=== PATIENT | female | born 1970 | race Hispanic/Latino ===

== ENCOUNTER 2021-12-21 14:23 | Observation (INO) | payer OTHER ==
[~2021-12-21] VITALS: Ht 170.2 cm; Wt 83.9 kg
[2021-12-21] VITALS (19 sets, daily range): BP systolic 113–127; BP diastolic 63–79
[2021-12-21 14:48] LABS: APPEARANCE,URINE Clear (CLEAR); BILIRUBIN,URINE Negative (NEGATIVE); COLOR,URINE Yellow (YELLOW); GLUCOSE, URINE (UA) Negative (NEGATIVE); KETONES,URINE Negative (NEGATIVE); LEUKOCYTE ESTERASE ,URINE Negative (NEGATIVE); NITRATE,URINE Negative (NEGATIVE); OCCULT BLOOD,URINE Negative (NEGATIVE); PH,URINE 5.5 (5.0-8.0); PROTEIN,URINE Negative (NEGATIVE); UROBILINOGEN,URINE 0.2 mg/dL (0.2-1.0)
[2021-12-21 14:48] LABS: BASOPHILS % (AUTO) 0.5 % (0.0-5.0); EOSINOPHILS % (AUTO) 2.1 % (0.0-8.0); HEMATOCRIT 41.5 % (36-48); LYMPHOCYTES % (AUTO) 21.7 % (21.0-51.0); MEAN CORPUSCULAR HEMOGLOBIN 25.4 pg (27.0-33.0); MEAN CORPUSCULAR VOLUME 79.2 fL (79-99); MONOCYTES % (AUTO) 6.7 % (3.0-13.0); NEUTROPHILS % (AUTO) 68.6 % (40.0-77.0); PLATELET COUNT (AUTO) 323 K/uL (130-400); RED BLOOD CELL COUNT(AUTO) 5.24 MIL/uL (4.00-5.50); RED CELL DISTRIBUTION WIDTH 14.4 % (11.0-15.5); WHITE BLOOD COUNT (AUTO) 15.4 K/uL (4.8-10.8)
[2021-12-21 15:05] LABS: CARBON DIOXIDE 29 mmol/L (21-32); CHLORIDE 104 mmol/L (101-111); CREATININE 0.7 mg/dL (0.5-1.5); GLOMERULAR FILTR. RATE CALC 94 mL/min (>60); GLUCOSE,RANDOM 105 mg/dL (70-105); POTASSIUM 3.9 mmol/L (3.5-5.1); SODIUM SERUM 141 mmol/L (136-145); UREA NITROGEN, BLOOD 12 mg/dL (7-18)
[2021-12-21 15:09] LABS: ALANINE AMINOTRANSFERASE 32 U/L (12-78); ALBUMIN 4.1 g/dL (3.5-5.0); ASPARTATE AMINOTRANSFERASE 21 U/L (10-37); BILIRUBIN,TOTAL 0.6 mg/dL (0.2-1.0); TOTAL PROTEIN, SERUM 8.3 g/dL (6.0-8.3)
[2021-12-21 15:22] LABS: LIPASE < 50 U/L (114-286)
[2021-12-21] MEDS ORDERED: MORPHINE 4 MG SYG IV ONE (15:30)
[2021-12-21] MEDS ORDERED: 0.9%NACL 1000ML 1,000 ML IV ONE (15:30)
[2021-12-21] MEDS ORDERED: ONDANSETRON 4MG INJ IVP ONE (15:30)
[2021-12-21] MEDS ORDERED: IOHEXOL 350 MG/ML 100ML INFUS..BTL IV ONE (15:33)
[2021-12-21] MEDS ORDERED: ZOSYN 3.375GM +NS 50ML IV SCH ×2 (16:30→21:00)
[2021-12-21] MEDS ORDERED: 0.9%NACL 50ML 50 ML IV ONE (16:40)
[2021-12-21] MEDS ORDERED: PANTOPRAZOLE 40 MG/VIAL IVP ONE (17:00)
[2021-12-21] MEDS ORDERED: ONDANSETRON 4MG INJ IVP PRN ×2 (17:30→20:30)
[2021-12-21] MEDS ORDERED: HYDROMORPHONE 0.5 MG SYG (0.5MG/0.5ML) IVP PRN (17:30)
[2021-12-21] MEDS ORDERED: ACETAMINOPHEN 500 MG TABLET PO PRN (17:30)
[2021-12-21] MEDS ORDERED: LACTATED RINGERS 1000ML 1,000 ML IV SCH ×3 (17:30→20:30)
[2021-12-21] MEDS ORDERED: IPRATROPIUM/ALBUTEROL SULFATE 3 ML SOLUTION IH PRN (17:30)
[2021-12-21 17:40] LABS: INR 0.98 (0.85-1.15); PROTHROMBIN TIME 10.7 SEC (9.6-11.6)
[2021-12-21 17:41] LABS: PARTIAL THROMBOPLASTIN TIME 29.6 SEC (26.3-35.5)
[2021-12-21] MEDS ORDERED: BUPIVACAINE/EPI/PF 0.5% 30ML VIAL IJ ONE (18:41)
[2021-12-21] MEDS ORDERED: PROPOFOL 10 MG/ML 20ML VIAL IV ONE (19:17)
[2021-12-21] MEDS ORDERED: MIDAZOLAM HCL 1 MG/ML 2ML VIAL ONE (19:17)
[2021-12-21] MEDS ORDERED: LIDOCAINE PF 100MG/5ML (2%) SYRINGE 5ML ONE ×2 (19:17→19:23)
[2021-12-21] MEDS ORDERED: FENTANYL CITRATE PF 50 MCG/1 ML 2ML VIAL ONE (19:18)
[2021-12-21] MEDS ORDERED: ROCURONIUM 10MG/1ML SYR 10 MG/ML ML ONE (19:18)
[2021-12-21] MEDS ORDERED: DEXAMETHASONE SOD PHOSPHATE 4 MG/ML 1ML VIAL ONE (19:34)
[2021-12-21] MEDS ORDERED: ONDANSETRON 4MG INJ ONE (19:34)
[2021-12-21] MEDS ORDERED: LIDOCAINE HCL 4% LTA SOL 4 ML VIAL ONE (19:34)
[2021-12-21] MEDS ORDERED: GLYCOPYRROLATE 1 MG/5 ML SYRINGE ONE (19:56)
[2021-12-21] MEDS ORDERED: NEOSTIGMINE 5MG/5ML SYR IV ONE (19:56)
[2021-12-21] MEDS ORDERED: KETOROLAC 30MG VIAL (30MG/ML) ONE (20:12)
[2021-12-21] MEDS ORDERED: MEPERIDINE-PF 25 MG/ML SYG IV PRN (20:30)
[2021-12-21] MEDS ORDERED: MORPHINE 2 MG SYG IV PRN (20:30)
[2021-12-21] MEDS ORDERED: ACETAMINOPHEN 325 MG TAB PO PRN (20:30)
[2021-12-21] MEDS ORDERED: MEPERIDINE-PF 25 MG/ML SYG ONE ×2 (20:50→20:59)
[2021-12-21] MEDS: FAMOTIDINE 20MG VIAL IV SCH (22:38)
[2021-12-22 00:15] VITALS: BP 124/77
[2021-12-22 01:15] VITALS: BP 120/57
[2021-12-22 02:15] VITALS: BP 121/66
[2021-12-22 04:20] VITALS: BP 122/67
[2021-12-22 06:51] LABS: BASOPHILS % (AUTO) 0.2 % (0.0-5.0); HEMATOCRIT 37.7 % (36-48); LYMPHOCYTES % (AUTO) 9.3 % (21.0-51.0); MEAN CORPUSCULAR HEMOGLOBIN 25.2 pg (27.0-33.0); MEAN CORPUSCULAR HGB CONC 31.3 g/dL (32.0-36.0); MEAN CORPUSCULAR VOLUME 80.6 fL (79-99); MONOCYTES % (AUTO) 4.4 % (3.0-13.0); NEUTROPHILS % (AUTO) 85.6 % (40.0-77.0); PLATELET COUNT (AUTO) 275 K/uL (130-400); RED BLOOD CELL COUNT(AUTO) 4.68 MIL/uL (4.00-5.50); RED CELL DISTRIBUTION WIDTH 14.4 % (11.0-15.5); WHITE BLOOD COUNT (AUTO) 13.7 K/uL (4.8-10.8)
[2021-12-22 07:04] LABS: CREATININE 0.8 mg/dL (0.5-1.5); MAGNESIUM 1.7 mg/dL (1.80-2.40); POTASSIUM 4.5 mmol/L (3.5-5.1)
[2021-12-22 08:00] VITALS: BP 117/73
[2021-12-22] MEDS: FAMOTIDINE 20MG VIAL IV SCH (08:34)
[2021-12-22] MEDS ORDERED: PANTOPRAZOLE 40 MG/VIAL IVP SCH (09:00)
== END 2021-12-22 10:52 | disposition home or self-care (01) ==
LOC: EDH 14:23 → EDHIP 17:05 → INTOOBSV 17:05 → 3BH 21:11
PROVIDERS: ADMIT Internal Medicine; ATTEND Internal Medicine
DX: K35.80 Unspecified acute appendicitis (principal); Z20.822 Contact with and (suspected) exposure to COVID-19; K66.0 Peritoneal adhesions (postprocedural) (postinfection); D72.829 Elevated white blood cell count, unspecified; F17.210 Nicotine dependence, cigarettes, uncomplicated; Z98.891 History of uterine scar from previous surgery; Z79.899 Other long term (current) drug therapy
CPT/HCPCS: 36415 ×2; 44970; 74177; 80048; 80053; 81003; 83605; 83690; 83735; 83880; 84145; 84703; 85025 ×2; 85610; 85651; 85730; 86140; 87635; 93005; 96361 ×2; 96365; 96366; 96375; 96376; 99285; A4344; A4649 ×5; C9113; G0378 ×14; J1100; J1885; J2001 ×2; J2175 ×2; J2250; J2270; J2405 ×2; J2543; J2704; J2710; J3010; J3490 ×4; J7030; J7120 ×3; Q9967